=== PATIENT | female | born 1975 | race African-American/Black ===

== ENCOUNTER 2017-03-25 15:49 | Outpatient (CLI) | payer OTHER ==
--- NOTE | 2017-03-25 19:14 | RAD ---
TWO VIEW CHEST 03/25/17 COMPARISON: 12/17/14 INDICATION: Difficulty breathing. FINDINGS: No consolidation, effusion or discrete pneumothorax. The cardiac silhouette is within normal limits of size. IMPRESSION: No focal consolidation. POS: [id number]
== END 2017-03-25 15:50 | disposition home or self-care (01) ==
LOC: NAV RAD 15:49
PROVIDERS: ATTEND Nurse Practitioner Family
DX: R06.00 Dyspnea, unspecified (principal)
CPT/HCPCS: 71020

== ENCOUNTER 2017-10-29 10:15 | Emergency (ER) | payer OTHER ==
[2017-10-29] MEDS ORDERED: Dexamethasone 20 MG/5 ML VIAL ONE (10:47)
== END 2017-10-29 11:00 | disposition home or self-care (01) ==
LOC: NAV ERS 10:15
DX: H10.13 Acute atopic conjunctivitis, bilateral (principal); L23.9 Allergic contact dermatitis, unspecified cause; I10 Essential (primary) hypertension; Z87.891 Personal history of nicotine dependence; Z79.899 Other long term (current) drug therapy
CPT/HCPCS: 96372; J1100